=== PATIENT | female | born 1945 | race Caucasian/White ===

== ENCOUNTER 2016-10-31 03:50 | Emergency (ER) | payer MEDICARE, OTHER ==
[~2016-10-31 03:50] MED LIST: ALENDRONATE SOD70 MG PO; ASPIRIN CHEWABL81 MG PO; ATIVAN0.5 MG PO; BACLOFEN 10MG T10 MG PO; BUSPIRONE HCL15 MG PO; CARAFATE1 GM PO; COUMADIN10 MG PO; COUMADIN7.5 MG PO; FLOMAX 0.4 MG0.4 MG PO; HABITROL21 MG PO; KEPPRA500 MG PO; LACTINEX1 EACH PO; LASIX40 MG PO; LAXATIVE OF CHOICE; LEXAPRO 10MG TA10 MG PO; LOPRESSOR50 MG PO; MORPHINE PUMP; MOVANTIK12.5 MG PO; MUCINEX 600MG600 MG PO; NASONEX17 GM; NEURONTIN800 MG PO; NORCO 7.5-3251 EACH PO; NYSTATIN SUSP1 ML/ML SSW; OMEPRAZOLE40 MG PO; PHENERGAN25 M1 PO; PREDNISONE 10MG10 MG PO; REMERON15 MG PO; SPIRIVA18 MCG INH; SYMBICORT 1601 PUFFS INH; THEOPHYLLINE 3300 MG PO; TYLENOL325 M1 PO; VENTOLIN (2.5 MG/3 M NEB; VITAMIN D1000 UNI1 PO; ZANTAC150 M1 PO
== END 2016-10-31 09:55 | disposition home or self-care (01) ==
LOC: FER 03:50
DX: S81.812A Laceration without foreign body, left lower leg, initial encounter (principal); E11.9 Type 2 diabetes mellitus without complications; I10 Essential (primary) hypertension; J44.9 Chronic obstructive pulmonary disease, unspecified; G89.29 Other chronic pain; M54.9 Dorsalgia, unspecified; Z88.0 Allergy status to penicillin; Z88.1 Allergy status to other antibiotic agents; Z79.51 Long term (current) use of inhaled steroids; Z79.82 Long term (current) use of aspirin; Z79.01 Long term (current) use of anticoagulants; Z79.899 Other long term (current) drug therapy; W18.39XA Other fall on same level, initial encounter
CPT/HCPCS: 72170; 73590; J2270; J2405

== ENCOUNTER 2017-02-08 08:53 | Emergency (ER) | payer MEDICARE, OTHER | END 2017-02-08 10:15 | disposition home or self-care (01) | LOC: FER 08:53 | DX: S39.012A Strain of muscle, fascia and tendon of lower back, initial encounter (principal); I11.0 Hypertensive heart disease with heart failure; I50.9 Heart failure, unspecified; J44.9 Chronic obstructive pulmonary disease, unspecified; M51.36 Other intervertebral disc degeneration, lumbar region; M41.86 Other forms of scoliosis, lumbar region; M19.90 Unspecified osteoarthritis, unspecified site; F17.210 Nicotine dependence, cigarettes, uncomplicated; Z86.73 Personal history of transient ischemic attack (TIA), and cerebral infarction without residual deficits; Z87.828 Personal history of other (healed) physical injury and trauma; Z88.1 Allergy status to other antibiotic agents; Z88.0 Allergy status to penicillin; Z98.1 Arthrodesis status; W01.0XXA Fall on same level from slipping, tripping and stumbling without subsequent striking against object, initial encounter; Y92.009 Unspecified place in unspecified non-institutional (private) residence as the place of occurrence of the external cause | CPT/HCPCS: 72100 ==

== ENCOUNTER 2017-02-10 11:37 | Emergency (ER) | payer MEDICARE, OTHER ==
[2017-02-10 12:29] LABS: BASOPHIL 0.4 % (0-2); EOSINOPHIL 3.3 % (0-7); HCT 45.7 % (37.0-47.0); HGB 14.1 g/dl (12.5-16.0); LYMPHOCYTE 28.2 % (15-48); MCH 28.3 pg (25.0-31.0); MCHC 30.9 g/dL (32.0-36.0); MCV 91.8 fL (78.0-100.0); MONOCYTE 6.8 % (0-12); MPV 11.3 fL (6.0-9.5); NEUTROPHIL 61.3 % (41-80); PLT 166 K/uL (150-400); RBC 4.98 M/uL (4.20-5.40); RDW 17.9 % (11.5-14.0)
[2017-02-10 12:30] LABS: BILIRUBIN NEGATIVE (NEGATIVE); BLOOD NEGATIVE Ery/uL (NEGATIVE); CLARITY CLEAR (CLEAR); COLOR YELLOW (YELLOW); GLUCOSE (U) NORMAL (NORMAL); KETONE (U) NEGATIVE (NEGATIVE); LEUKOCYTES 1+ Leu/uL (NEGATIVE); NITRITE NEGATIVE (NEGATIVE); PROTEIN NEGATIVE (NEGATIVE); SPECIFIC GRAVITY 1.015 (1.001-1.030); UROBILINOGEN 0.2 mg/dL (0.2-1.0); pH 6.5 (5.0-9.0)
[2017-02-10 12:34] LABS: ALBUMIN 3.9 g/dL (3.4-4.8); BILIRUBIN - TOTAL 0.3 mg/dL (0.1-1.0); CREATININE 1.2 mg/dL (0.5-1.0); GLOBULIN (CALCULATION) 3.5 g/dL (2.2-4.2); POTASSIUM 3.9 mmol/L (3.5-5.1); TOTAL PROTEIN 7.4 g/dL (6.4-8.3)
[2017-02-10 12:36] LABS: BACTERIA 3+
== END 2017-02-10 15:49 | disposition home or self-care (01) ==
LOC: FER 11:37
PROVIDERS: Emergency Medicine
DX: R41.0 Disorientation, unspecified (principal); J98.11 Atelectasis; G40.909 Epilepsy, unspecified, not intractable, without status epilepticus; M54.9 Dorsalgia, unspecified; R22.43 Localized swelling, mass and lump, lower limb, bilateral; Z88.0 Allergy status to penicillin; Z88.1 Allergy status to other antibiotic agents; Z79.82 Long term (current) use of aspirin; Z79.01 Long term (current) use of anticoagulants; Z79.899 Other long term (current) drug therapy
CPT/HCPCS: 36415; 70450; 71010; 80053; 80299; 81001; 84484; 85025; 93005